=== PATIENT | male | born 1975 ===

== ENCOUNTER 2020-06-19 13:26 | Emergency (ER) | payer MEDICAID ==
[~2020-06-19] VITALS: Ht 162.6 cm; Wt 76.5 kg
[2020-06-19 13:40] VITALS: BP 155/107
[2020-06-19] MEDS ORDERED: AMOX-422 PO (13:49)
== END 2020-06-19 14:07 | disposition home or self-care (01) ==
LOC: ER 13:27
DX: S51.811A Laceration without foreign body of right forearm, initial encounter (principal); M79.601 Pain in right arm; M25.521 Pain in right elbow; Z79.2 Long term (current) use of antibiotics; W54.0XXA Bitten by dog, initial encounter; Y93.89 Activity, other specified; Y92.89 Other specified places as the place of occurrence of the external cause; Y99.8 Other external cause status
CPT/HCPCS: 99283